=== PATIENT | female | born 1955 | race Caucasian/White ===

== ENCOUNTER 2017-10-04 09:08 | Emergency (ER) | payer OTHER ==
[~2017-10-04] VITALS: Ht 154.9 cm; Wt 83.9 kg
[~2017-10-04 09:08] MED LIST: HYDROCHLOROTHIA25 MG PO; LIPITOR10 MG PO; LISINOPRIL10 MG PO
[2017-10-04] MEDS ORDERED: ZOFRAN ODT4 MG PO (09:32)
[2017-10-04] MEDS ORDERED: K-TAB ER20 MEQ PO (09:32)
[2017-10-04] MEDS ORDERED: DISOPYRAMIDE P100 MG PO (12:21)
[2017-10-04] MEDS ORDERED: METOPROLOL SUCC50 MG PO (12:21)
--- NOTE | 2017-10-05 13:46 | EKG ---
[facility] [address] [facility] [place], [place] [address] Signed Normal sinus rhythm Low voltage QRS Inferior infarct , age undetermined Possible Anterolateral infarct , age undetermined Abnormal ECG No previous ECGs available Confirmed by NICK SAMAYOA MD ([id number]) on 10/05/2017 1:46:19 PM Electronically Signed By: NICK SAMAYOA MD 10/05/17 1346 PATIENT NAME: ISAIAH WASHINGTON AIDA Electrocardiogram DATE OF : 59 PHYSICIAN: NICK SAMAYOA MD REPORT #: [id number] REPORT IS CONFIDENTIAL AND NOT TO BE RELEASED WITHOUT AUTHORIZATION
== END 2017-10-04 13:50 | disposition home or self-care (01) ==
LOC: ED 09:08
DX: R06.02 Shortness of breath (principal); R10.9 Unspecified abdominal pain; F17.200 Nicotine dependence, unspecified, uncomplicated; Z88.5 Allergy status to narcotic agent; Z79.899 Other long term (current) drug therapy
CPT/HCPCS: 71046; 74176; 80053; 81001; 83735; 83880; 84484; 85025; 93005; 93010; 96361; 96374; 96375; 99284; J2405; J3010; J7120

== ENCOUNTER 2020-05-15 10:19 | Emergency (ER) | payer OTHER ==
[~2020-05-15] VITALS: Ht 154.9 cm; Wt 83.9 kg
[~2020-05-15 10:19] MED LIST changes: +DISOPYRAMIDE P100 MG PO; +K-TAB ER20 MEQ PO; +METOPROLOL SUCC50 MG PO; +ZOFRAN ODT4 MG PO
--- NOTE | 2020-05-16 00:01 | EKG ---
[facility] [address] [facility] [place] [address] Signed Atrial-paced rhythm Low voltage QRS Cannot rule out Inferior infarct (cited on or before 04-OCT-2017) Cannot rule out Anterior infarct (cited on or before 04-OCT-2017) Abnormal ECG When compared with ECG of 04-OCT-2017 09:14, Electronic atrial pacemaker has replaced Sinus rhythm Vent. rate has decreased BY 32 BPM Questionable change in initial forces of Anterolateral leads Confirmed by NICK SAMAYOA MD ([id number]) on 05/16/2020 12:01:17 AM Electronically Signed By: NICK SAMAYOA MD 05/16/20 0001 PATIENT NAME: ISAIAH WASHINGTON Electrocardiogram DATE OF : 59 PHYSICIAN: NICK SAMAYOA MD REPORT #: [id number] REPORT IS CONFIDENTIAL AND NOT TO BE RELEASED WITHOUT AUTHORIZATION
== END 2020-05-15 13:03 | disposition home or self-care (01) ==
LOC: ED 10:19
DX: I10 Essential (primary) hypertension (principal); J45.909 Unspecified asthma, uncomplicated; F17.200 Nicotine dependence, unspecified, uncomplicated; Z88.5 Allergy status to narcotic agent; Z79.899 Other long term (current) drug therapy
CPT/HCPCS: 71045; 80053; 84484; 85025; 93005; 93010; 99284-25

== ENCOUNTER 2024-03-27 11:33 | Emergency (ER) | payer MEDICARE, OTHER ==
[~2024-03-27] VITALS: Ht 154.9 cm; Wt 86.8 kg
[~2024-03-27 11:33] MED LIST changes: +ALENDRONATE SOD70 MG PO; +INDAPAMIDE2.5 MG PO; +TRAMADOL HCL50 MG PO; +VENTOLIN HFA18 GM INH
[2024-03-27] MEDS ORDERED: ASPIRIN 81 MG CHEW PO ONE (11:45)
[2024-03-27] MEDS ORDERED: BISOPROLOL FUMAR5 MG PO (11:49)
[2024-03-27 11:54] LABS: BASOPHILS 0.6 % (0-2); EOSINOPHILS 2.4 % (0-6); HEMATOCRIT 44.2 % (35.0-50.0); HEMOGLOBIN 15.4 g/dL (12.0-18.0); LYMPHOCYTES 25.3 % (24-44); MCH 32.8 (27-36); MCHC 34.8 g/dl (30-36); MCV 94.1 fl (81-99); MONOCYTES 7.7 % (0-12); PLATELET COUNT 109 K/uL (140-440); RDW 12.8 (10.5-15.0)
[2024-03-27 12:24] LABS: ALBUMIN 3.1 g/dL (3.4-5.0); ALBUMIN/GLOBULIN RATIO 0.7 (1.1-2.4); ANION GAP 10.1 (7-21); BUN/CREATININE RATIO 8.75 (6.0-28.6); CREATININE, SERUM 1.37 mg/dL (0.55-1.02); POTASSIUM 4.1 mmol/L (3.5-5.1); PROTEIN, TOTAL 7.5 g/dL (6.4-8.2)
[2024-03-27 14:04] VITALS: BP 151/84
--- NOTE | 2024-03-29 14:39 | EKG ---
[facility] [address] [facility] [place] [address] Signed Normal sinus rhythm Cannot rule out Inferior infarct (cited on or before 04-OCT-2017) Possible Anterolateral infarct (cited on or before 04-OCT-2017) Abnormal ECG When compared with ECG of 15-MAY-2020 11:29, Sinus rhythm has replaced Electronic atrial pacemaker Confirmed by Michael Doyle MD ([id number]) on 03/29/2024 2:39:38 PM Electronically Signed By: MICHAEL DOYLE DO 03/29/24 1439 PATIENT NAME: ISAIAH WASHINGTON Electrocardiogram DATE OF : 59 PHYSICIAN: MICHAEL DOYLE DO REPORT #: [id number] REPORT IS CONFIDENTIAL AND NOT TO BE RELEASED WITHOUT AUTHORIZATION
== END 2024-03-27 14:05 | disposition home or self-care (01) ==
LOC: ED 11:33
PROVIDERS: Emergency Medicine
DX: R07.89 Other chest pain (principal); I10 Essential (primary) hypertension; J45.909 Unspecified asthma, uncomplicated; F17.200 Nicotine dependence, unspecified, uncomplicated; Z95.0 Presence of cardiac pacemaker; Z88.5 Allergy status to narcotic agent; Z79.899 Other long term (current) drug therapy
CPT/HCPCS: 36415; 71045; 80053; 83880; 84484; 85025; 93005; 93010; 99285-25; A9270

== ENCOUNTER 2024-11-09 11:24 | Emergency (ER) | payer MEDICARE, MEDICAID ==
[~2024-11-09] VITALS: Ht 154.9 cm; Wt 86.8 kg
[~2024-11-09 11:24] MED LIST changes: +BISOPROLOL FUMAR5 MG PO
[2024-11-09] MEDS ORDERED: STIOLTO RESPIMAT4 GM INH (11:36)
[2024-11-09] MEDS ORDERED: ACETAMINOPHEN 500 MG TAB PO ONE (12:45)
[2024-11-09 14:38] VITALS: BP 158/86
== END 2024-11-09 14:40 | disposition home or self-care (01) ==
LOC: ED 11:24
DX: S02.2XXA Fracture of nasal bones, initial encounter for closed fracture (principal); J45.909 Unspecified asthma, uncomplicated; I10 Essential (primary) hypertension; F17.200 Nicotine dependence, unspecified, uncomplicated; W18.30XA Fall on same level, unspecified, initial encounter; Z79.899 Other long term (current) drug therapy; Z88.5 Allergy status to narcotic agent
CPT/HCPCS: 70450; 70486; 72125; 99283-25; A9270